=== PATIENT | female | born 1960 | race Caucasian/White ===

== ENCOUNTER 2017-11-16 16:23 | Emergency (ER) | payer BC ==
[2017-11-16 16:35] VITALS: BP 147/75
--- NOTE | 2017-11-16 17:10 | UC ---
Skin Complaint HPI - HPI Summary HPI Summary: patient is concerned that she was expose to 2 and maybe 3 ticks in the past 24 hours.. Small amount of redness at the site of the 2 bites - History of Current Complaint Chief Complaint: UCSkin Time Seen by Provider: 11/16/17 16:42 Stated Complaint: TICK BITE Hx Obtained From: Patient ?: No Onset/Duration: Sudden Onset Current Severity: None Pain Intensity: 0 Pain Scale Used: 0-10 Numeric Location: Discrete Character: Redness Aggravating Factor(s): Nothing Alleviating Factor(s): Nothing Related History: Insect Bite/Sting - Allergy/Home Medications Allergies/Adverse Reactions: Allergies Allergy/AdvReac Type Severity Reaction Status Date / Time Adhesive Tape Allergy Rash Verified 11/16/17 16:36 amoxicillin Allergy Nausea And Verified 11/16/17 16:36 Vomiting Sulfa (Sulfonamide Allergy Swelling Verified 11/16/17 16:36 Antibiotics) cats Allergy Shortness Uncoded 11/16/17 16:36 of Breath dairy Allergy Anaphylatic Uncoded 11/16/17 16:36 Shock Home Medications: Home Medications Bacitracin Zinc 1 each TP 11/16/17 [History] Calcium Carb/Vitamin D3/Vit K1 [Calcium + D Soft Chewable Tab] 11/16/17 [ History] Ferrous Gluconate [Iron 27] 240 mg PO 11/16/17 [History] Glucosamine/D3/Boswellia Lexy [Osteo Bi-Flex/5-Loxin Adv] 1 tab PO 11/16/17 [ History] Multivitamin [Multivitamins] 1 cap PO 11/16/17 [History] Review of Systems Constitutional: Negative Skin: Rash - erythema at site of 2 tick bites Eyes: Negative ENT: Negative Respiratory: Negative Cardiovascular: Negative Gastrointestinal: Negative Genitourinary: Negative Motor: Negative Neurovascular: Negative Musculoskeletal: Negative Neurological: Negative Psychological: Negative Is Patient Immunocompromised?: No All Other Systems Reviewed And Are Negative: Yes PMH/Surg Hx/FS Hx/Imm Hx Previously Healthy: Yes - Surgical History Surgical History: Yes Surgery Procedure, Year, and Place: T & A. ovarian cyst - Family History Known Family History: Positive: None - Social History Occupation: Employed Full-time Lives: Alone Alcohol Use: Rare Substance Use Type: None Smoking Status (MU): Former Smoker Physical Exam Triage Information Reviewed: Yes Appearance: Well-Appearing, No Pain Distress, Well-Nourished Vital Signs: Initial Vital Signs Temp 97.9 F 11/16/17 16:31 Pulse 89 11/16/17 16:31 Resp 18 11/16/17 16:31 BP 147/75 11/16/17 16:31 Pulse Ox 98 11/16/17 16:31 Vital Signs Reviewed: Yes Eye Exam: Normal Eyes: Positive: Conjunctiva Clear ENT Exam: Normal ENT: Positive: Normal ENT inspection, Hearing grossly normal. Negative: Trismus , Muffled voice, Hoarse voice Dental Exam: Normal Neck exam: Normal Neck: Positive: Supple, Nontender Respiratory Exam: Normal Respiratory: Positive: Chest non-tender, No respiratory distress, No accessory muscle use Cardiovascular Exam: Normal Cardiovascular: Positive: RRR, Pulses Normal, Brisk Capillary Refill Musculoskeletal Exam: Normal Musculoskeletal: Positive: Strength Intact, ROM Intact, No Edema Neurological Exam: Normal Neurological: Positive: Alert, Muscle Tone Normal Psychological Exam: Normal Skin Exam: Normal Course/Dx - Course Course Of Treatment: mild soap and water wash, hydrocortisone for localized irratation, follow bp with pcp obsever for s/s of LYME - Diagnoses Provider Diagnoses: Elevated blood pressure with out hx of hypertension, Tick bite Discharge - Sign-Out/Discharge Documenting (check all that apply): Discharge/Admit/Transfer - Discharge Plan Condition: Stable Disposition: HOME Patient Education Materials: Hydrocortisone (On the skin), Insect Bite or Sting (ED), Tick Bite (ED), Hypertension (ED), Cold Compress or Soak (ED) Referrals: Pacheco Ivy MD [Primary Care Provider] - 2 Weeks - Billing Disposition and Condition Condition: STABLE Disposition: Home
== END 2017-11-16 17:18 | disposition home or self-care (01) ==
LOC: UCEAST 16:23
DX: S00.06XA Insect bite (nonvenomous) of scalp, initial encounter (principal); S50.362A Insect bite (nonvenomous) of left elbow, initial encounter; W57.XXXA Bitten or stung by nonvenomous insect and other nonvenomous arthropods, initial encounter; Y93.01 Activity, walking, marching and hiking; Y92.821 Forest as the place of occurrence of the external cause; R03.0 Elevated blood-pressure reading, without diagnosis of hypertension; Z88.0 Allergy status to penicillin; Z88.2 Allergy status to sulfonamides; Z91.048 Other nonmedicinal substance allergy status; Z87.891 Personal history of nicotine dependence
CPT/HCPCS: 99211; G0463

== ENCOUNTER 2018-03-01 17:54 | Emergency (ER) | payer BC ==
[2018-03-01] MEDS ORDERED: Ondansetron ODT TAB* 4 MG PO ONE ×2 (19:12→21:00)
[2018-03-01] MEDS ORDERED: Meclizine TAB* 12.5 MG PO ONE (19:12)
--- NOTE | 2018-03-01 19:26 | ED ---
Dizziness - HPI Summary HPI Summary: This patient is a 57 year old F presenting to [facility] accompanied by a friend with a chief complaint of intermittent sudden onset severe room-spinning vertigo attacks since 02/16/18, with the episodes lasting around 2 hours. She endorses N/V/D and that repeated head angle change aggravates sx. She denies SANTILLAN , weakness, numbness, abd pain, sx alleviation from meclizine, and current dizziness, emesis, or diarrhea (she endorses nausea is her only current sx). PMHx vertigo, with past episodes lasting longer but never reaching this severity of dizziness, and never associated emesis and diarrhea. She notes that 2 weeks ago she experienced her first severe vertigo episode, with associated N/ V/D. She says she saw her PCP shortly after; rx meclizine. Pt endorses a moderate episode 02/27/18 PM; took rx, no sx alleviation. 02/28/18 AM still symptomatic, but this AM she says she felt no sx. This afternoon at work, she states she was sitting at her computer when she experienced sudden onset room- spinning vertigo. She tried an anti-vertigo exercise with no alleviation of sx, and experienced more N/V/D. Pt denies having taken meclizine today. PMHx constant left sided tinnitus and hearing loss in that ear from 3 or 4 years ago. - History Of Current Complaint Chief Complaint: EDDizziness Stated Complaint: DIZZINESS Time Seen by Provider: 03/01/18 18:54 Hx Obtained From: Patient Onset/Duration: Still Present, Suddenly Timing: Intermittent Episode Lasting - 2 hours give or take Severity Initially: Severe Severity Currently: Mild Character: Room Spinning, Dizzy Aggravating Factor(s): Change In Head Position Alleviating Factor(s): Nothing, Other - meclizine has not helped sx. Associated Signs And Symptoms: Positive: Nausea, Vomiting, Diarrhea, Tinnitus - past 3 or 4 years, may not be associated. Negative: Fever, Other: - SANTILLAN, weakness, numbness, and abd pain Related History: Similar Episode/Dx as - PMHx vertigo - Allergies/Home Medications Allergies/Adverse Reactions: Allergies Allergy/AdvReac Type Severity Reaction Status Date / Time Adhesive Tape Allergy Rash Verified 11/16/17 16:36 amoxicillin Allergy Nausea And Verified 11/16/17 16:36 Vomiting dog dander Allergy See Comment Verified 12/08/17 16:02 egg Allergy See Comment Verified 12/08/17 16:02 Sulfa (Sulfonamide Allergy Swelling Verified 11/16/17 16:36 Antibiotics) cats Allergy Shortness Uncoded 11/16/17 16:36 of Breath dairy Allergy Anaphylatic Uncoded 11/16/17 16:36 Shock PMH/Surg Hx/FS Hx/Imm Hx Endocrine/Hematology History: Denies: Hx Diabetes, Hx Thyroid Disease Cardiovascular History: Reports: Other Cardiovascular Problems/Disorders - murmur Denies: Hx Hypercholesterolemia, Hx Hypertension, Hx Pacemaker/ICD, Hx Peripheral Vascular Disease Respiratory History: Reports: Hx Asthma GI History: Denies: Hx Ileostomy History: Denies: Hx Dialysis, Hx Renal Disease Musculoskeletal History: Denies: Hx Arthritis, Hx Osteoporosis Sensory History: Reports: Hx Hearing Problem - left most hearing lost, tinnitus Denies: Hx Cataracts, Hx Contacts or Glasses, Hx Glaucoma, Hx Deafness, Hx Hearing Aid Opthamlomology History: Denies: Hx Cataracts, Hx Contacts or Glasses, Hx Glaucoma EENT History: Reports: Hx Hearing Problem, Other - tinnitus Denies: Hx Deafness Neurological History: Reports: Hx Migraine Denies: Hx Headaches, Hx Seizures, Hx Transient Ischemic Attacks (TIA) Psychiatric History: Denies: Hx Anxiety, Hx Depression, Hx Panic Disorder - Surgical History Surgery Procedure, Year, and Place: T & A. ovarian cyst Infectious Disease History: No Infectious Disease History: Denies: Traveled Outside the [place] in Last 30 Days - Family History Known Family History: Positive: Cardiac Disease, Diabetes, Other - arthritis, breast CA - Social History Occupation: Employed Full-time Lives: Alone Alcohol Use: Rare Substance Use Type: Reports: None Smoking Status (MU): Former Smoker Review of Systems Negative: Fever Positive: Other - majority hearing loss left ear secondary to tinnitus Positive: Vomiting, Diarrhea, Nausea. Negative: Abdominal Pain Positive: no symptoms reported Neurological: Other - Room-spinning vertigo, dizziness Negative: Headache, Weakness, Numbness All Other Systems Reviewed And Are Negative: Yes Physical Exam - Summary Physical Exam Summary: General: well-appearing, no pain distress Skin: warm, color reflects adequate perfusion, dry Head: normal Eyes: EOMI, ANNA MARIE ENT: normal Neck: supple, non-tender Respiratory: CTA, breath sounds present Cardiovascular: RRR Abdomen: soft, non-tender Bowel: present Musculoskeletal: normal, strength/ROM intact Neurological: sensory/motor intact, A&O x3 Psychological: affect/mood appropriat Triage Information Reviewed: Yes Vital Signs On Initial Exam: Initial Vitals Temp Pulse Resp BP Pulse Ox 97 F 76 16 137/83 99 03/01/18 18:19 03/01/18 18:19 03/01/18 18:19 03/01/18 18:19 03/01/18 18:19 Vital Signs Reviewed: Yes Diagnostics - Vital Signs Vital Signs Temp Pulse Resp BP Pulse Ox 03/01/18 18:19 97 F 76 16 137/83 99 - Laboratory Lab Statement: Any lab studies that have been ordered have been reviewed, and results considered in the medical decision making process. - CT Brain CT Interpretation: No Acute Changes CT Interpretation Completed By: Radiologist - No acute intracranial pathology. Dr. Santos has reviewed this report. Re-Evaluation - Re-Evaluation First Eval Re-Evaluation Time: 20:30 Change: Unchanged Comment: Discussed imaging results. Pt feels pretty much the same. Dizzy Course/Dx - Course Course Of Treatment: WELL IN ED. DISCUSSED CT RESULTS WITH THE PATIENT AND FAMILY. F/U PMD; RETURN TO ED IF WORSE. - Diagnoses Provider Diagnoses: Vertigo Discharge - Sign-Out/Discharge Documenting (check all that apply): Patient Departure - discharge - Discharge Plan Condition: Stable Disposition: HOME Prescriptions: Ondansetron ODT TAB* [Zofran 4 MG Odt TAB*] 4 mg PO Q6H PRN #10 tab.odt PRN Reason: Nausea Patient Education Materials: Vertigo (ED) Referrals: Pacheco Ivy MD [Primary Care Provider] - Additional Instructions: FOLLOW UP WITH YOUR PRIMARY CARE DOCTOR AND PHYSICAL THERAPY. GET RECHECKED FOR ANY WORSENING OF YOUR CONDITION OR QUESTIONS OR CONCERNS. - Billing Disposition and Condition Condition: STABLE Disposition: Home - Attestation Statements Document Initiated by Scribe: Yes Documenting Scribe: Sawyer Ardon Provider For Whom Scribe is Documenting (Include Credential): Dr. Lonny Santos MD Scribe Attestation: Sawyer Hinton scribed for Dr. Lonny Santos MD on 09/12/18 at 2210. Scribe Documentation Reviewed: Yes Provider Attestation: The documentation as recorded by the Sawyer short accurately reflects the service I personally performed and the decisions made by me, Dr. Lonny Santos MD
--- NOTE | 2018-03-01 20:12 | RAD ---
EXAM: CT Head Without Intravenous Contrast CLINICAL HISTORY: 57 years old, female; Signs and symptoms; Dizziness TECHNIQUE: Axial computed tomography images of the head/brain without intravenous contrast. All CT scans at this facility use at least one of these dose optimization techniques: automated exposure control; mA and/or kV adjustment per patient size (includes targeted exams where dose is matched to clinical indication); or iterative reconstruction. COMPARISON: CTA HEAD CTA HEAD 12/28/2013 1:10 PM FINDINGS: Brain: There is mild age-related diffuse cerebral and cerebellar volume loss. No hemorrhage. No significant white matter disease. Ventricles: Unremarkable. No ventriculomegaly. Bones/joints: Unremarkable. No acute fracture. Soft tissues: Unremarkable. Sinuses: Unremarkable as visualized. No acute sinusitis. Mastoid air cells: Unremarkable as visualized. No mastoid effusion. IMPRESSION: No acute intracranial pathology.
[2018-03-01] MEDS ORDERED: O ndansetron ODT 4MG 2TAB PRPK 4 MG PAK PO ONE (20:43)
[2018-03-01 20:58] VITALS: BP 130/70
== END 2018-03-01 20:57 | disposition home or self-care (01) ==
LOC: ED 17:54
DX: R42 Dizziness and giddiness (principal); R11.2 Nausea with vomiting, unspecified; R19.7 Diarrhea, unspecified; Z87.891 Personal history of nicotine dependence
CPT/HCPCS: 70450; 99283; A9270-GY

== ENCOUNTER 2019-01-25 11:31 | Emergency (ER) | payer BC, OTHER ==
[2019-01-25] MEDS ORDERED: HYDROcodone/ACETAMIN 5-325 MG* 1 TAB PO ONE ×2 (11:47→15:26)
--- NOTE | 2019-01-25 11:58 | ED ---
Upper Extremity Pain - HPI Summary HPI Summary: 58 year old F patient brought to [facility] by EMS with a chief complaint of left wrist pain since 1 hr ago 01/25/19 rated at 10/10 in severity. Patient reports she was walking up the stairs when she tripped and fell forward bracing herself by putting both arms out hurting both wrists and hitting her head slightly with no LOC. Patient denies any fever, chills, erythema of eyes, sore throat, CP, SOB , cough, abdominal pain, N/V, dysuria, hematuria, myalgia, edema, rash, or dizziness. Patient reports tingling and numbness when her blood pressure was measured on her left arm and that there is swelling in her left arm and wrist. Patient reports her right wrist is also swollen but not as bad as the left and that her current right wrist pain is as painful in severity as when originally hurting it. Symptoms aggravated by nothing. Symptoms alleviated by nothing. Patient reports she is allergic to Sulfa and amoxicillin. - History of Current Complaint Chief Complaint: EDFall Stated Complaint: RIGHT AND LEFT WRIST PAIN PER EMS Time Seen by Provider: 01/25/19 11:40 Hx Obtained From: Patient Mechanism Of Injury: Fall From A Standing Position Onset/Duration: Started Hours Ago - 1, Still Present Timing: Constant Pain Location: Wrist - left Aggravating Factor(s): Nothing Alleviating Factor(s): Nothing Associated Signs & Symptoms: Positive: Swelling, Numbness/Tingling - reports tingling and numbness upon blood pressure measurement, Other - reports arm pain; ; denies any chills, erythema of eyes, sore throat, cough, abdominal pain, dysuria, hematuria, myalgia, edema, rash, or dizziness. Negative: Fever, Chest Pain, SOB, Nausea, Vomiting - Allergies/Home Medications Allergies/Adverse Reactions: Allergies Allergy/AdvReac Type Severity Reaction Status Date / Time Adhesive Tape Allergy Rash Verified 01/25/19 11:38 amoxicillin Allergy Nausea And Verified 01/25/19 11:38 Vomiting dog dander Allergy See Comment Verified 01/25/19 11:38 egg Allergy See Comment Verified 01/25/19 11:38 nickel Allergy SKIN Verified 01/25/19 11:38 SWELLING AND SKIN TURNS GREEN Sulfa (Sulfonamide Allergy Swelling Verified 01/25/19 11:38 Antibiotics) cats Allergy Shortness Uncoded 08/14/18 08:27 of Breath dairy Allergy Anaphylatic Uncoded 08/14/18 08:27 Shock Home Medications: Home Medications Calcium Carbonate/Vitamin D3 [Calcium 500+D 500-200 mg-Unit] 1 tab PO DAILY 02/05 [History Confirmed 01/25/19] Iron-Vitamin C 65/125(Nf) [Vitron-C (NF)] 1 tab PO DAILY 01/25/19 [History Confirmed 01/25/19] PMH/Surg Hx/FS Hx/Imm Hx Endocrine/Hematology History: Reports: Hx Anemia - ON IRON SUPPLEMENT FOR Denies: Hx Diabetes, Hx Thyroid Disease Cardiovascular History: Reports: Other Cardiovascular Problems/Disorders - murmur Denies: Hx Hypercholesterolemia, Hx Hypertension, Hx Pacemaker/ICD, Hx Peripheral Vascular Disease Respiratory History: Reports: Hx Asthma - PRN INHALER GI History: Reports: Other GI Disorders - HX OF DIVERTICULITIS- LAT 2-3 YEARS AGO Denies: Hx Ileostomy History: Denies: Hx Dialysis, Hx Renal Disease Musculoskeletal History: Reports: Hx Tendonitis - LEFT HAND/WRIST Denies: Hx Arthritis, Hx Osteoporosis Sensory History: Reports: Hx Cataracts - BEGINNING OF IN BOTH EYES, Hx Contacts or Glasses - INSTRUCTS GIVEN, Hx Hearing Problem Denies: Hx Glaucoma, Hx Deafness, Hx Hearing Aid Opthamlomology History: Reports: Hx Cataracts - BEGINNING OF IN BOTH EYES, Hx Contacts or Glasses - INSTRUCTS GIVEN Denies: Hx Glaucoma Neurological History: Reports: Hx Migraine - MONTHLY- TREATS WITH REST, Other Neuro Impairments/Disorders - HX OF VERTIGO Denies: Hx Headaches, Hx Seizures, Hx Transient Ischemic Attacks (TIA) Psychiatric History: Denies: Hx Anxiety, Hx Depression, Hx Panic Disorder - Surgical History Surgery Procedure, Year, and Place: TONSILLECTOMY AND ADENOIDECTOMY. OVARIAN CYST REMOVED. COLONOSCOPY Hx Anesthesia Reactions: Yes - NAUSEA AND VOMITING;HARD TIME WAKING UP Infectious Disease History: No Infectious Disease History: Denies: Traveled Outside the [place] in Last 30 Days - Family History Known Family History: Positive: Cardiac Disease, Diabetes, Other - arthritis, breast CA - Social History Alcohol Use: Rare Hx Substance Use: No Substance Use Type: Reports: None Hx Tobacco Use: Yes Smoking Status (MU): Former Smoker Amount Used/How Often: 3-4 CIGARETTES PER DAY X 10 YEARS Have You Smoked in the Last Year: No Review of Systems Negative: Fever, Chills Negative: Erythema Negative: Sore Throat Negative: Chest Pain Negative: Shortness Of Breath, Cough Negative: Abdominal Pain, Vomiting, Nausea Negative: dysuria, hematuria Positive: Other - arm and wrist pain, tingling and numbness upon contact in wrists and arms, swollen wrists. Negative: Myalgia, Edema Negative: Rash Neurological: Other - denies dizziness All Other Systems Reviewed And Are Negative: Yes Physical Exam - Summary Physical Exam Summary: Constitutional: Well-developed, Well-nourished, Alert. (-) Distressed Skin: Warm, Dry HENT: Normocephalic; Atraumatic Eyes: Conjunctiva normal Neck: Musculoskeletal ROM normal neck. (-) JVD, (-) Stridor, (-) Tracheal deviation Cardio: Rhythm regular, rate normal, Heart sounds normal; Intact distal pulses; The pedal pulses are 2+ and symmetric. Radial pulses are 2+ and symmetric. (-) Murmur Pulmonary/Chest wall: Effort normal. (-) Respiratory distress, (-) Wheezes, (-) Rales Abd: Soft, (-) tenderness, (-) Distension, (-) Guarding, (-) Rebound Musculoskeletal: Left wrist- Tenderness over distal radial ulna on the left side, Diminished range of motion, Wrist flexion extension, No finger tenderness Right wrist- no significant tenderness, no snuff box tenderness, range of motion intact Lymph: (-) Cervical adenopathy Neuro: Alert, Oriented x3 Psych: Mood and affect Normal Triage Information Reviewed: Yes Vital Signs On Initial Exam: Initial Vitals Temp Pulse Resp BP Pulse Ox 98.0 F 84 20 182/87 98 01/25/19 11:34 01/25/19 11:34 01/25/19 11:34 01/25/19 11:34 01/25/19 11:34 Vital Signs Reviewed: Yes Procedures - Splinting Left Hand-Made Type: orthoglass - 30 cm Splint Applied by Provider: Hemant Garcia - distal sensation is normal before and after procedure Diagnostics - Vital Signs Vital Signs Temp Pulse Resp BP Pulse Ox 01/25/19 11:34 98.0 F 84 20 182/87 98 - Laboratory Lab Statement: Any lab studies that have been ordered have been reviewed, and results considered in the medical decision making process. - Radiology Wrist X-Ray Radiology Interpretation Completed By: Radiologist Summary of Radiographic Findings: Per radiologist,. Likely fracture of the distal radial metaphysis on the left. Chronic deformity of the right wrist is noted which appears similar to that identified on. the prior hand x-ray dated January 07, 2017. ED physician has reviewed this imaging report. Course/Dx - Course Course Of Treatment: 58 year old F patient brought to [facility] by EMS with a chief complaint of left wrist pain since 1 hr ago 01/25/19 rated at 10/10 in severity. Patient reports she was walking up the stairs when she tripped and fell forward bracing herself by putting both arms out hurting both wrists and hitting her head slightly with no LOC. Patient denies any fever, chills, erythema of eyes, sore throat, CP, SOB, cough, abdominal pain, N/V, dysuria, hematuria, myalgia, edema, rash, or dizziness. Patient reports tingling and numbness when her blood pressure was measured on her left arm and that there is swelling in her left arm and wrist. Patient reports her right wrist is also swollen but not as bad as the left and that her current right wrist pain is as painful in severity as when originally hurting it. Physical exam reveals no abnormalities except for. Left wrist- Tenderness over distal radial ulna on the left side, Diminished range of motion, Wrist flexion extension, No finger tenderness. Right wrist- no significant tenderness, no snuff box tenderness, range of motion intact. Patient was given 2 tabs hydrocodone bitart/acetaminophen PO at 2 different times in the ED. Wrist X-Ray reveals Likely fracture of the distal radial metaphysis on the left. Chronic deformity of the right wrist is noted which appears similar to that identified on the prior hand x-ray dated January 07, 2017. Physician discusses discharge with patient who agrees. Patient will be discharged and follow up with orthopedic surgery within 2-3 days. - Diagnoses Provider Diagnoses: Ulna distal fracture, Distal radius fracture Discharge - Sign-Out/Discharge Documenting (check all that apply): Patient Departure - discharge Patient Received Moderate/Deep Sedation with Procedure: No - Discharge Plan Condition: Stable Disposition: HOME Prescriptions: HYDROcodone/ACETAMIN 5-325 MG* [[place] 5-325 TAB*] 1 tab PO Q6H PRN #15 tab MDD 4 PRN Reason: Pain - Severe Patient Education Materials: Wrist Fracture in Adults (ED) Forms: *Work Release Referrals: Krystyna Camacho MD [Medical Doctor] - 2 Days Additional Instructions: Follow up with orthopedics within 2 days. Return to the ED for any new or worsening symptoms. - Attestation Statements Document Initiated by Scribe: Yes Documenting Scribe: Kimberlyn Crowley Provider For Whom Scribe is Documenting (Include Credential): Dr. Hemant Garcia, ED Scribe Attestation: Kimberlyn Hinton, scribed for Dr. Hemant Garcia, ED on 01/25/19 at 1735. Status of Scribe Document: Ready
[2019-01-25 16:01] VITALS: BP 142/72
== END 2019-01-25 15:59 | disposition home or self-care (01) ==
LOC: ED 11:31
DX: S52.602A Unspecified fracture of lower end of left ulna, initial encounter for closed fracture (principal); S52.502A Unspecified fracture of the lower end of left radius, initial encounter for closed fracture; W10.9XXA Fall (on) (from) unspecified stairs and steps, initial encounter; Y92.89 Other specified places as the place of occurrence of the external cause; Y99.0 Civilian activity done for income or pay; D64.9 Anemia, unspecified; J45.909 Unspecified asthma, uncomplicated; Z87.891 Personal history of nicotine dependence; Z79.899 Other long term (current) drug therapy; Z88.0 Allergy status to penicillin; Z88.2 Allergy status to sulfonamides
CPT/HCPCS: 99282